=== PATIENT | female | born 1985 | race Asian ===

== ENCOUNTER 2017-02-08 18:51 | Emergency (ER) | payer MEDICAID ==
[2016-02-12 08:00] VITALS: BMI 19.1
[~2017-02-08 18:51] MED LIST: CELEXA20 MG PO; CHANTIX 1 MG TAB1 MG PO; FLINTSTONE1 TAB.CHEW PO; IBUPROFEN600 MG PO; NORCO 7.5/325 T1 TA1 PO; PERCOCET 5-3251 TAB PO; ROBAXIN-750750 MG PO
== END 2017-02-08 21:51 | disposition home or self-care (01) ==
LOC: D.ER 18:51
DX: J20.9 Acute bronchitis, unspecified (principal)

== ENCOUNTER 2017-03-19 18:39 | Emergency (ER) | payer MEDICAID ==
[2016-02-12 08:00] VITALS: BMI 19.1
[2017-03-19 21:39] LABS: HCG URINE NEGATIVE (NEGATIVE)
== END 2017-03-19 23:05 | disposition home or self-care (01) ==
LOC: D.ER 18:39
PROVIDERS: Nurse Practitioner Family
DX: S16.1XXA Strain of muscle, fascia and tendon at neck level, initial encounter (principal); V43.52XA Car driver injured in collision with other type car in traffic accident, initial encounter; Y93.89 Activity, other specified; Y92.410 Unspecified street and highway as the place of occurrence of the external cause; M62.838 Other muscle spasm; M54.9 Dorsalgia, unspecified; F17.200 Nicotine dependence, unspecified, uncomplicated

== ENCOUNTER 2019-02-28 14:49 | Emergency (ER) | payer MEDICAID ==
[~2019-02-28] VITALS: Ht 165.1 cm; Wt 77.3 kg
[2019-02-28 15:45] VITALS: Ht 165.1 cm; Wt 77.3 kg
[2019-02-28] MEDS ORDERED: HYDRALAZINE HCL10 MG (15:48)
[2019-02-28] MEDS ORDERED: HYDROCODON-ACE1 EAC7 PO (15:49)
[2019-02-28 20:17] LABS: BASOPHILS 0 % (0-2); EOSINOPHILS 1.7 % (0-7); HEMATOCRIT 33.3 % (36.0-48.0); HEMOGLOBIN 11.1 g/dL (12-16); IMMATURE GRANULOCYTES 0.2 % (0-5); LYMPHOCYTES 15.7 % (15-50); MCH 30.8 pg (26.0-34.0); MCHC 33.3 g/dL (31.0-37.0); MCV 92.5 fL (80.0-100.0); MEAN PLATELET VOLUME 9.6 fL (7.4-10.4); MONOCYTES 5.6 % (2-11); NEUTROPHILS 76.8 % (40-80); WBC 5.3 10x3/uL (4.8-10.8)
[2019-02-28 20:18] LABS: PLATELET COUNT 173 10x3/uL (130-400)
[2019-02-28 20:52] LABS: ALBUMIN 2.5 g/dL (3.4-5.0); ALKALINE PHOSPHATASE 97 U/L (46-116); ALT (SGPT) 72 U/L (10-68); BILIRUBIN - TOTAL 0.35 mg/dL (0.2-1.3); CALC OSMOLALITY 275 mosm/kg (275-300); CALCIUM 8.3 mg/dL (8.5-10.1); CARBON DIOXIDE 28.2 mmol/L (21.0-32.0); CHLORIDE - SERUM 103 mmol/L (98-107); CREATININE - SERUM 0.5 mg/dL (0.6-1.3); GLUCOSE 88 mg/dL (74-106); POTASSIUM - SERUM 3.4 mmol/L (3.5-5.1); PROTEIN - SERUM 6.6 g/dL (6.4-8.2); SODIUM 139 mmol/L (136-145); UREA NITROGEN 10 mg/dL (7-18); eGFR NON AFRICAN AMERICAN > 90 mL/min (90-120)
[2019-02-28 20:59] LABS: HCG SERUM POSITIVE (NEGATIVE)
[2019-03-01] MEDS ORDERED: HYDROCODON-ACE1 EA10 PO (00:25)
[2019-03-01 01:13] VITALS: BP 125/74
== END 2019-03-01 01:14 | disposition home or self-care (01) ==
LOC: D.ER 14:49
PROVIDERS: Family Medicine
DX: G89.18 Other acute postprocedural pain (principal)